=== PATIENT | female | born 1935 | race Caucasian/White ===

== ENCOUNTER → 2016-12-13 | Outpatient (CLI) | payer OTHER ==
--- NOTE | 2016-12-13 15:06 | DX ---
Sacroiliac Joints, Two Views Clinical Indication: Increased activity noted on bone scan. Findings: There are some degenerative changes of the SI joints but no convincing lytic or blastic les ions. Mild degenerative changes are present in the lower spine. Femoral heads are unremarkable. Impression: Degenerative changes of the sacroiliac joints without convincing evidence of metastatic disease. I have reviewed this with Dr. Casey who agrees with the above finding.
--- NOTE | 2016-12-13 15:20 | NM ---
Nuclear Medicine Whole Body Bone Scan Clinical Indications: Breast cancer. Comparisons: CT chest December 12, 2016, from [facility]. Two views of the SI joints obtained December 13, for this study. Technique: 22.2 mCi technetium 99m MDP were injected intravenously. Delayed images of the skeleton were obtained in anterior and posterior projections. Findings: Activity is normally distributed throughout the skeleton. There is no convincing evidence of metastatic disease. There is possible subtle breast uptake which can be related to known breast c ancer. Increased uptake in the left posterior SI joint does not have a definite correlate on plain ra diographs except for some degenerative change. This possibly could represent skin contamination. Impression: No convincing evidence of bony metastatic disease. Questional subtle uptake in the breas ts in a patient with history of breast cancer.
== END ==
LOC: FIMAGING 10:00
PROVIDERS: ATTEND Physician Assistant
DX: C50.919 Malignant neoplasm of unspecified site of unspecified female breast (principal)
CPT/HCPCS: 72200; 78306; A9503

== ENCOUNTER → 2017-05-01 | Outpatient (CLI) | payer OTHER | LOC: FIMAGING 12:52 | PROVIDERS: ATTEND Internal Medicine Hematology & Oncology | DX: N64.52 Nipple discharge (principal); Z85.3 Personal history of malignant neoplasm of breast | CPT/HCPCS: 76641; G0206 ==

== ENCOUNTER → 2017-11-11 | Outpatient (CLI) | payer OTHER | LOC: FIMAGING 09:47 | PROVIDERS: ATTEND Internal Medicine Hematology & Oncology | PROC: CP1Z1ZZ Planar Nuclear Medicine Imaging of Musculoskeletal System, All using Technetium 99m (Tc-99m) (ICD-10-PCS; principal; 2017-11-11) | DX: C50.412 Malignant neoplasm of upper-outer quadrant of left female breast (principal) | CPT/HCPCS: 78306; A9503 ==